=== PATIENT | male | born 1955 | race African-American/Black ===

== ENCOUNTER 2017-07-05 10:22 | Emergency (ER) | payer MEDICARE, MEDICAID ==
[~2017-07-05] VITALS: Ht 172.7 cm; Wt 55.0 kg
[~2017-07-05 10:22] MED LIST: NORCO; VALIUM
[2017-07-05 11:05] VITALS: BP 115/65
[2017-07-05 11:05] LABS: HEMATOCRIT. 38.2 % (42.0-52.0); HEMOGLOBIN. 12.7 g/dL (14.0-18.0); LYMPHOCYTES % 21.4 % (20.0-50.0); MEAN CORPUSCULAR HEMOGLOBIN 26.8 pg (28.0-32.0); MEAN PLATELET VOLUME 6.6 fl (7.4-10.4); MONOCYTES % 7.4 % (2.0-8.0); NEUTROPHILS % 69.2 % (40.0-76.0); PLATELET 524 x1000/uL (130-400); RED BLOOD CELL COUNT 4.72 mill/uL (4.7-6.1); RED CELL DISTRIBUTION WIDTH 13.1 % (11.6-14.6)
[2017-07-05 11:14] LABS: INR 1.2; PROTHROMBIN TIME 12.3 sec (9.4-11.6)
[2017-07-05 11:18] LABS: CHLORIDE 104 mEq/L (98-107)
[2017-07-05 11:27] LABS: CARBON DIOXIDE 31 mEq/L (21-32)
== END 2017-07-05 12:15 | disposition home or self-care (01) ==
LOC: ER 10:39
DX: R20.2 Paresthesia of skin (principal); J45.909 Unspecified asthma, uncomplicated; Z86.73 Personal history of transient ischemic attack (TIA), and cerebral infarction without residual deficits
CPT/HCPCS: 36415; 70450; 71045; 80053; 85025; 85610; 93005; 99285

== ENCOUNTER 2017-07-31 10:30 | Inpatient (IN) | payer MEDICARE, MEDICAID ==
[~2017-07-31] VITALS: Ht 175.3 cm; Wt 59.0 kg
[2017-07-31] MEDS ORDERED: ONDANSETRON HCL 4MG/2ML VIAL IV STA (10:56)
[2017-07-31] MEDS ORDERED: MORPHINE SULFATE 4 MG/ML CPJ (NOT FOR IM USE) IV STA (10:56)
[2017-07-31 11:13] LABS: EOSINOPHILS % 2.2 % (0.0-5.0); HEMATOCRIT. 35.9 % (42.0-52.0); HEMOGLOBIN. 11.8 g/dL (14.0-18.0); LYMPHOCYTES % 33.6 % (20.0-50.0); MEAN CORPUSCULAR HEMOGLOBIN 26.6 pg (28.0-32.0); MEAN CORPUSCULAR VOLUME 80.9 fL (80.0-94.0); MEAN PLATELET VOLUME 7.3 fl (7.4-10.4); MONOCYTES % 7.1 % (2.0-8.0); NEUTROPHILS % 56.1 % (40.0-76.0); PLATELET 226 x1000/uL (130-400); RED BLOOD CELL COUNT 4.44 mill/uL (4.7-6.1); RED CELL DISTRIBUTION WIDTH 13.9 % (11.6-14.6)
[2017-07-31 11:22] LABS: D-DIMER 0.36 mg/L FEU (<0.50); INR 1.1; PROTHROMBIN TIME 11.5 sec (9.4-11.6)
[2017-07-31 11:27] LABS: CHLORIDE 108 mEq/L (98-107); TROPONIN I 0.04 ng/mL (0.00-0.04)
[2017-07-31] MEDS ORDERED: IPRATROPIUM/ALBUTEROL 0.5-3(2.5)MG/3ML NEB HHN PRN (13:00)
[2017-07-31] MEDS ORDERED: HYDROCODONE/ACETAMINOPHEN 5/325MG TABLET PO PRN (13:00)
[2017-07-31] MEDS ORDERED: ONDANSETRON HCL 4MG/2ML VIAL IV PRN (13:00)
[2017-07-31] MEDS ORDERED: MORPHINE SULFATE 2 MG/ML CPJ (NOT FOR IM USE) IV PRN (13:00)
[2017-07-31 14:10] VITALS: BP 100/50
[2017-07-31 16:00] VITALS: BP 108/59
[2017-07-31] MEDS ORDERED: ASPI-986 PO (16:42)
[2017-07-31 16:50] VITALS: BP 100/50
[2017-07-31 17:06] LABS: CREATINE KINASE MB FRACTION < 0.5 ng/mL (0.5-3.6); TROPONIN I 0.04 ng/mL (0.00-0.04)
[2017-07-31] MEDS ORDERED: PNEUMOCOCCAL 23-VAL P-SAC VAC 0.5 ML IM ONE (18:00)
[2017-07-31] MEDS ORDERED: INFLUENZA VIRUS VACCINE 0.5ML SYR IM ONE (18:00)
[2017-07-31] MEDS: CLOPIDOGREL 75MG TABLET PO SCH (18:21)
[2017-07-31] MEDS: NICOTINE 14MG PATCH TD SCH (18:56)
[2017-07-31] MEDS ORDERED: REGADENOSON 0.4 MG/5 ML IV SCH (19:00)
[2017-07-31 20:00] VITALS: BP 112/47
[2017-07-31] MEDS ORDERED: ATORVASTATIN CALCIUM 10MG TABLET PO SCH (21:00)
[2017-08-01] VITALS: BP 117/62
[2017-08-01 04:00] VITALS: BP 120/65
[2017-08-01 06:32] LABS: BASOPHILS % 0.5 % (0.0-2.0); EOSINOPHILS % 3.2 % (0.0-5.0); HEMATOCRIT. 33.6 % (42.0-52.0); HEMOGLOBIN. 11.2 g/dL (14.0-18.0); LYMPHOCYTES % 40.7 % (20.0-50.0); MEAN CORPUSCULAR HEMOGLOBIN 27.1 pg (28.0-32.0); MEAN PLATELET VOLUME 7.8 fl (7.4-10.4); MONOCYTES % 7.6 % (2.0-8.0); PLATELET 203 x1000/uL (130-400); RED BLOOD CELL COUNT 4.15 mill/uL (4.7-6.1); RED CELL DISTRIBUTION WIDTH 14.2 % (11.6-14.6)
[2017-08-01 07:07] LABS: CHLORIDE 108 mEq/L (98-107); HDL CHOLESTEROL 45 mg/dL (40-59); LDL CHOLESTEROL 99 mg/dL (5-100)
[2017-08-01 07:50] VITALS: BP 110/71
[2017-08-01] MEDS ORDERED: ASPIRIN 81MG TABLET PO SCH (09:00)
[2017-08-01] MEDS ORDERED: REGADENOSON 0.4 MG/5 ML IV ONE (09:22)
[2017-08-01] MEDS ORDERED: NICO-681 TD (11:09)
[2017-08-01] MEDS ORDERED: CLOP75TA16 PO (11:09)
[2017-08-01] MEDS: CLOPIDOGREL 75MG TABLET PO SCH (11:32)
[2017-08-01] MEDS: NICOTINE 14MG PATCH TD SCH (11:35)
[2017-08-01 12:00] VITALS: BP 105/72
[2017-08-01] MEDS ORDERED: SODIUM CHLORIDE 0.9% 10ML VIAL ONE (14:07)
[2017-08-01 14:44] VITALS: BP 105/72
== END 2017-08-01 16:05 | disposition home or self-care (01) | DRG 206 ==
LOC: ER 10:30 → EDBEDREQ 12:16 → ENRESERV 13:02 → 8WST 14:43
PROVIDERS: ADMIT Internal Medicine; ATTEND Internal Medicine
DX: M94.0 Chondrocostal junction syndrome [Tietze] (principal); I24.9 Acute ischemic heart disease, unspecified; F17.210 Nicotine dependence, cigarettes, uncomplicated; D64.9 Anemia, unspecified; R35.1 Nocturia; R21 Rash and other nonspecific skin eruption; J45.909 Unspecified asthma, uncomplicated; Z79.82 Long term (current) use of aspirin; Z82.49 Family history of ischemic heart disease and other diseases of the circulatory system; Z86.73 Personal history of transient ischemic attack (TIA), and cerebral infarction without residual deficits; Z71.6 Tobacco abuse counseling
CPT/HCPCS: 36415; 71045; 78452; 80048; 80061; 82553; 83735; 83880; 84484; 85025; 85379; 85610; 85651; 85730; 93005; 93017; 93306; 97161; A4216; A9500; A9505; C1893; J2270; J2405; J2785

== ENCOUNTER 2017-08-16 10:45 | Emergency (ER) | payer MEDICARE, MEDICAID ==
[~2017-08-16] VITALS: Ht 180.3 cm; Wt 70.0 kg
[~2017-08-16 10:45] MED LIST changes: +ASPI-986 PO; +CLOP75TA16 PO; +NICO-681 TD; -NORCO; -VALIUM
[2017-08-16 11:38] LABS: BASOPHILS % 0.7 % (0.0-2.0); EOSINOPHILS % 2.4 % (0.0-5.0); HEMOGLOBIN. 11.9 g/dL (14.0-18.0); LYMPHOCYTES % 29.1 % (20.0-50.0); MEAN CORPUSCULAR HEMOGLOBIN 26.7 pg (28.0-32.0); MEAN CORPUSCULAR VOLUME 82.9 fL (80.0-94.0); MONOCYTES % 8.6 % (2.0-8.0); NEUTROPHILS % 59.2 % (40.0-76.0); PLATELET 167 x1000/uL (130-400); RED BLOOD CELL COUNT 4.46 mill/uL (4.7-6.1); RED CELL DISTRIBUTION WIDTH 14.9 % (11.6-14.6)
[2017-08-16 11:42] LABS: INR 1.2
[2017-08-16 11:46] LABS: CHLORIDE 109 mEq/L (98-107)
[2017-08-16 11:51] LABS: TROPONIN I 0.06 ng/mL (0.00-0.04)
[2017-08-16] MEDS ORDERED: FAMOTIDINE 20MG/2ML VIAL IV STA (12:24)
[2017-08-16] MEDS ORDERED: MAGNESIUM/ALUMINUM HYDROXIDE/SIMETHICONE 30ML UDC PO STA (12:24)
[2017-08-16 16:15] VITALS: BP 119/79
[2017-08-16] MEDS ORDERED: ASPIRIN 81MG TABLET PO ONE (16:30)
== END 2017-08-16 17:37 | disposition left against medical advice (07) ==
LOC: ER 11:06
DX: R07.89 Other chest pain (principal); D64.9 Anemia, unspecified; D72.819 Decreased white blood cell count, unspecified; R79.89 Other specified abnormal findings of blood chemistry; R74.8 Abnormal levels of other serum enzymes; R00.1 Bradycardia, unspecified; J45.909 Unspecified asthma, uncomplicated; E11.9 Type 2 diabetes mellitus without complications; I10 Essential (primary) hypertension; Z79.02 Long term (current) use of antithrombotics/antiplatelets; Z79.82 Long term (current) use of aspirin; Z86.73 Personal history of transient ischemic attack (TIA), and cerebral infarction without residual deficits
CPT/HCPCS: 36415; 71045; 80053; 83880; 84484; 85025; 85610; 93005; 96374; 99285; J3490

== ENCOUNTER 2017-10-30 12:21 | Emergency (ER) | payer MEDICARE, MEDICAID ==
[~2017-10-30] VITALS: Ht 162.6 cm; Wt 64.0 kg
[2017-10-30] MEDS ORDERED: MAGNESIUM/ALUMINUM HYDROXIDE/SIMETHICONE 30ML UDC PO STA (18:54)
[2017-10-30 18:57] VITALS: BP 126/75
[2017-10-30 19:39] LABS: EOSINOPHILS % 1.9 % (0.0-5.0); HEMATOCRIT. 36.2 % (42.0-52.0); HEMOGLOBIN. 12.1 g/dL (14.0-18.0); LYMPHOCYTES % 44.7 % (20.0-50.0); MEAN CORPUSCULAR HEMOGLOBIN 27.4 pg (28.0-32.0); MEAN CORPUSCULAR VOLUME 81.9 fL (80.0-94.0); MEAN PLATELET VOLUME 7.9 fl (7.4-10.4); MONOCYTES % 7.6 % (2.0-8.0); NEUTROPHILS % 44.8 % (40.0-76.0); PLATELET 158 x1000/uL (130-400); RED BLOOD CELL COUNT 4.42 mill/uL (4.7-6.1)
[2017-10-30 19:40] LABS: CHLORIDE 109 mEq/L (98-107)
[2017-10-30 19:42] LABS: INR 1.2; PROTHROMBIN TIME 12.2 sec (9.4-11.6)
== END 2017-10-30 21:10 | disposition left against medical advice (07) ==
LOC: ER 12:30
DX: R10.13 Epigastric pain (principal); I10 Essential (primary) hypertension; I69.328 Other speech and language deficits following cerebral infarction; J45.909 Unspecified asthma, uncomplicated; Z79.82 Long term (current) use of aspirin
CPT/HCPCS: 36415; 74176; 80053; 85025; 85610; 99285

== ENCOUNTER 2018-08-15 11:38 | Emergency (ER) | payer MEDICARE, MEDICAID ==
[~2018-08-15] VITALS: Ht 172.7 cm; Wt 56.5 kg
[2018-08-15 12:11] LABS: BASOPHILS % 0.4 % (0.0-2.0); EOSINOPHILS % 1.3 % (0.0-5.0); HEMATOCRIT. 37.4 % (42.0-52.0); HEMOGLOBIN. 12.3 g/dL (14.0-18.0); LYMPHOCYTES % 26.8 % (20.0-50.0); MEAN CORPUSCULAR HEMOGLOBIN 27.7 pg (28.0-32.0); MEAN PLATELET VOLUME 8.4 fl (7.4-10.4); MONOCYTES % 6.5 % (2.0-8.0); PLATELET 156 x1000/uL (130-400); RED BLOOD CELL COUNT 4.45 mill/uL (4.7-6.1)
[2018-08-15 12:19] LABS: CHLORIDE 109 mEq/L (98-107)
[2018-08-15 12:25] LABS: INR 1.1; PROTHROMBIN TIME 11.1 sec (9.1-11.1)
[2018-08-15 12:27] LABS: ETHANOL BLOOD < 10 mg/dL
[2018-08-15 12:29] LABS: LDL CHOLESTEROL 107 mg/dL (5-100)
[2018-08-15] MEDS ORDERED: POTASSIUM CHLORIDE 20MEQ TABLET SR PO ONE (12:30)
[2018-08-15] MEDS ORDERED: ASPIRIN 325MG EC TABLET PO ONE (12:30)
[2018-08-15] MEDS ORDERED: ACETAMINOPHEN 325MG TABLET PO PRN (15:15)
[2018-08-15] MEDS ORDERED: ONDANSETRON HCL 4MG/2ML INJ IV PRN (15:15)
[2018-08-15 15:29] VITALS: BP 128/71
[2018-08-15] MEDS ORDERED: ATORVASTATIN CALCIUM 40MG TABLET PO SCH (21:00)
[2018-08-15] MEDS ORDERED: AMLODIPINE 5MG TABLET PO SCH (21:00)
[2018-08-16] MEDS ORDERED: CLOPIDOGREL 75MG TABLET PO SCH (09:00)
== END 2018-08-15 16:02 | disposition left against medical advice (07) ==
LOC: ER 11:38 → CANBEDREQ 17:25
DX: I63.9 Cerebral infarction, unspecified (principal); I24.9 Acute ischemic heart disease, unspecified; E87.6 Hypokalemia; I11.9 Hypertensive heart disease without heart failure; J45.909 Unspecified asthma, uncomplicated; F17.210 Nicotine dependence, cigarettes, uncomplicated; Z86.73 Personal history of transient ischemic attack (TIA), and cerebral infarction without residual deficits; Z79.82 Long term (current) use of aspirin; Z71.6 Tobacco abuse counseling
CPT/HCPCS: 36415; 71045; 82962; 83721; 84443; 84484; 93005; 99284; 99406

== ENCOUNTER 2019-06-01 13:14 | Emergency (ER) | payer MEDICARE, MEDICAID ==
[~2019-06-01] VITALS: Ht 175.3 cm; Wt 73.0 kg
[~2019-06-01 13:14] MED LIST changes: -CLOP75TA16 PO; +CLOP75TA4 PO
[2019-06-01] MEDS ORDERED: ACETAMINOPHEN 325MG TABLET PO ONE (17:45)
[2019-06-01 17:53] VITALS: BP 151/99
== END 2019-06-01 17:56 | disposition home or self-care (01) ==
LOC: ER 13:58
DX: S09.8XXA Other specified injuries of head, initial encounter (principal); I69.351 Hemiplegia and hemiparesis following cerebral infarction affecting right dominant side; I69.328 Other speech and language deficits following cerebral infarction; I25.10 Atherosclerotic heart disease of native coronary artery without angina pectoris; J45.909 Unspecified asthma, uncomplicated; Z79.82 Long term (current) use of aspirin; W01.0XXA Fall on same level from slipping, tripping and stumbling without subsequent striking against object, initial encounter; Y93.89 Activity, other specified; Y92.013 Bedroom of single-family (private) house as the place of occurrence of the external cause
CPT/HCPCS: 99284

== ENCOUNTER 2019-09-10 20:42 | Inpatient (IN) | payer MEDICARE, MEDICAID ==
[~2019-09-10] VITALS: Ht 170.2 cm; Wt 70.1 kg
[2019-09-10 21:44] LABS: BASOPHILS % 0.6 % (0.0-2.0); EOSINOPHILS % 1.4 % (0.0-5.0); HEMATOCRIT. 37.1 % (42.0-52.0); HEMOGLOBIN. 12.4 g/dL (14.0-18.0); LYMPHOCYTES % 29.6 % (20.0-50.0); MEAN CORPUSCULAR HEMOGLOBIN 27.4 pg (28.0-32.0); MEAN CORPUSCULAR VOLUME 82.4 fL (80.0-94.0); MONOCYTES % 10.2 % (2.0-8.0); NEUTROPHILS % 58.2 % (40.0-76.0); PLATELET 159 x1000/uL (130-400); RED CELL DISTRIBUTION WIDTH 14.1 % (11.6-14.6)
[2019-09-10 21:46] LABS: CHLORIDE 114 mEq/L (98-107)
[2019-09-11] VITALS (7 sets, daily range): BP systolic 101–167; BP diastolic 61–98
[2019-09-11 00:14] LABS: CLARITY URINE CLEAR (CLEAR); COLOR URINE YELLOW (YELLOW); KETONES URINE NEGATIVE (NEGATIVE); LEUKOCYTE ESTERASE URINE NEGATIVE (NEGATIVE); NITRITE URINE NEGATIVE (NEGATIVE); OCCULT BLOOD URINE NEGATIVE (NEGATIVE); PROTEIN URINE NEGATIVE (NEGATIVE); SPECIFIC GRAVITY URINE 1.025 (1.005-1.030)
[2019-09-11] MEDS ORDERED: ASPIRIN 325MG EC TABLET PO ONE (01:45)
[2019-09-11] MEDS ORDERED: ACETAMINOPHEN 325MG TABLET PO PRN (07:30)
[2019-09-11] MEDS ORDERED: CLONIDINE 0.1MG TABLET PO PRN (07:30)
[2019-09-11] MEDS ORDERED: DIPHENHYDRAMINE 50MG/ML VIAL IV PRN (07:30)
[2019-09-11] MEDS ORDERED: ONDANSETRON HCL 4MG/2ML INJ IV PRN (07:30)
[2019-09-11 07:52] LABS: PHOSPHORUS 2.9 mg/dL (2.5-4.9)
[2019-09-11] MEDS: ASPIRIN 81MG EC TABLET PO SCH (11:58)
[2019-09-11] MEDS: ENOXAPARIN 40MG/0.4ML SYR SUBCUT SCH (11:58)
[2019-09-11] MEDS: AMLODIPINE 5MG TABLET PO SCH (21:00)
[2019-09-12] VITALS (11 sets, daily range): BP systolic 100–125; BP diastolic 58–86
[2019-09-12 06:02] LABS: CHLORIDE 111 mEq/L (98-107)
[2019-09-12 06:03] LABS: BASOPHILS % 0.5 % (0.0-2.0); EOSINOPHILS % 2.1 % (0.0-5.0); HEMATOCRIT. 38.7 % (42.0-52.0); HEMOGLOBIN. 13.2 g/dL (14.0-18.0); LYMPHOCYTES % 36.6 % (20.0-50.0); MEAN CORPUSCULAR VOLUME 82.1 fL (80.0-94.0); MEAN PLATELET VOLUME 8.2 fl (7.4-10.4); MONOCYTES % 9.8 % (2.0-8.0); PLATELET 167 x1000/uL (130-400); RED BLOOD CELL COUNT 4.72 mill/uL (4.7-6.1); RED CELL DISTRIBUTION WIDTH 13.8 % (11.6-14.6)
[2019-09-12 06:14] LABS: LDL CHOLESTEROL 139 mg/dL (5-100)
[2019-09-12 06:15] LABS: HDL CHOLESTEROL 62 mg/dL (40-59)
[2019-09-12] MEDS: ENOXAPARIN 40MG/0.4ML SYR SUBCUT SCH (09:00)
[2019-09-12] MEDS: ASPIRIN 81MG EC TABLET PO SCH (09:00)
[2019-09-12] MEDS: AMLODIPINE 5MG TABLET PO SCH ×2 (09:00→20:44)
[2019-09-12] MEDS ORDERED: ATORVASTATIN CALCIUM 20MG TABLET PO SCH (21:00)
[2019-09-13] VITALS (8 sets, daily range): BP systolic 98–157; BP diastolic 58–104
[2019-09-13 04:50] LABS: CHLORIDE 109 mEq/L (98-107)
[2019-09-13 06:12] LABS: BASOPHILS % 0.5 % (0.0-2.0); EOSINOPHILS % 1.7 % (0.0-5.0); HEMATOCRIT. 41.1 % (42.0-52.0); HEMOGLOBIN. 13.9 g/dL (14.0-18.0); MEAN CORPUSCULAR VOLUME 82.7 fL (80.0-94.0); MEAN PLATELET VOLUME 8.2 fl (7.4-10.4); MONOCYTES % 10.3 % (2.0-8.0); NEUTROPHILS % 49.5 % (40.0-76.0); PLATELET 169 x1000/uL (130-400); RED BLOOD CELL COUNT 4.97 mill/uL (4.7-6.1); RED CELL DISTRIBUTION WIDTH 13.8 % (11.6-14.6)
[2019-09-13] MEDS: AMLODIPINE 5MG TABLET PO SCH (09:46)
[2019-09-13] MEDS: ASPIRIN 81MG EC TABLET PO SCH (09:46)
[2019-09-13] MEDS: ENOXAPARIN 40MG/0.4ML SYR SUBCUT SCH (09:47)
== END 2019-09-13 22:25 | DRG 312 ==
LOC: ER 20:42 → 6WST 09-11 02:07 → ENRESERV 09-11 07:45
PROVIDERS: ADMIT Internal Medicine; ATTEND Internal Medicine
DX: R55 Syncope and collapse (principal); I69.320 Aphasia following cerebral infarction; E78.5 Hyperlipidemia, unspecified; I10 Essential (primary) hypertension; D64.9 Anemia, unspecified; R47.1 Dysarthria and anarthria; Z87.891 Personal history of nicotine dependence; Z79.02 Long term (current) use of antithrombotics/antiplatelets; J45.909 Unspecified asthma, uncomplicated
CPT/HCPCS: 36415; 80048; 80053; 80061; 81003; 83735; 84100; 84443; 84484; 85025; 93005; 93306; 93880; 93970; 97116; 97162; 97166; 99285; J1650

== ENCOUNTER 2021-03-23 22:26 | Inpatient (IN) | payer MEDICARE, MEDICAID ==
[~2021-03-23] VITALS: Ht 182.9 cm; Wt 75.5 kg
[~2021-03-23 22:26] MED LIST changes: +CLOP-31 PO; -CLOP75TA4 PO
[2021-03-23 23:38] LABS: HEMATOCRIT. 43.1 % (42.0-52.0); HEMOGLOBIN. 14.6 g/dL (14.0-18.0); MEAN CORPUSCULAR HEMOGLOBIN 27.2 pg (28.0-32.0); MEAN CORPUSCULAR VOLUME 80.6 fL (80.0-94.0); MEAN PLATELET VOLUME 8.1 fl (7.4-10.4); PLATELET 141 x1000/uL (130-400); RED BLOOD CELL COUNT 5.35 mill/uL (4.7-6.1); RED CELL DISTRIBUTION WIDTH 13.9 % (11.6-14.6)
[2021-03-23 23:44] LABS: CHLORIDE 105 mEq/L (98-107)
[2021-03-23 23:49] LABS: ETHANOL BLOOD < 10 mg/dL
[2021-03-23 23:51] LABS: PROTHROMBIN TIME 11.2 sec (9.6-11.0)
[2021-03-23 23:53] LABS: CREATINE KINASE 288 IU/L (39-308)
[2021-03-24] MEDS ORDERED: AZITHROMYCIN 500MG/250ML 250 ML IV SCH (01:00)
[2021-03-24] MEDS ORDERED: DEXAMETHASONE 10 MG/ML VIAL IV SCH (01:15)
[2021-03-24] MEDS ORDERED: CEFTRIAXONE 1 G PREMIX 50 ML IV SCH ×2 (01:15→09:15)
[2021-03-24 01:47] LABS: PLATELET ESTIMATE NORMAL
[2021-03-24] MEDS ORDERED: ASPIRIN 81MG TABLET PO ONE (02:45)
[2021-03-24] MEDS ORDERED: ENOXAPARIN 60MG/0.6ML SYR SUBCUT ONE (02:45)
[2021-03-24 08:00] VITALS: BP_SYST 100; BP_SYST 150; BP_DIAS 76
[2021-03-24] MEDS ORDERED: LEVO50TA8 PO (09:10)
[2021-03-24] MEDS ORDERED: LOSA100T32 PO (09:10)
[2021-03-24] MEDS ORDERED: LABE200T9 PO (09:10)
[2021-03-24] MEDS ORDERED: ACETAMINOPHEN 325MG TABLET PO PRN (09:15)
[2021-03-24] MEDS ORDERED: ONDANSETRON HCL 4MG/2ML INJ IV PRN (09:15)
[2021-03-24] MEDS: ENOXAPARIN 40MG/0.4ML SYR SUBCUT SCH (10:57)
[2021-03-24] MEDS: SODIUM CHLORIDE 0.9% 1,000 ML IV SCH ×2 (10:57→20:18)
[2021-03-24 12:00] VITALS: BP 110/81
[2021-03-24 15:24] VITALS: BP 107/78
[2021-03-24 16:00] VITALS: BP 109/80
[2021-03-24 20:00] VITALS: BP 96/72
[2021-03-24] MEDS: CEFTRIAXONE 1,000 MG in DEXTROSE 5% WATER 50 ML IV SCH (20:16)
[2021-03-24] MEDS: AZITHROMYCIN 500MG in DEXTROSE 5% WATER 250ML IV SCH (20:16)
[2021-03-25] VITALS: BP 105/70
[2021-03-25 04:00] VITALS: BP 108/78
[2021-03-25 06:29] LABS: CHLORIDE 109 mEq/L (98-107)
[2021-03-25 06:38] LABS: LDL CHOLESTEROL 89 mg/dL (5-100)
[2021-03-25 06:40] LABS: HDL CHOLESTEROL 42 mg/dL (40-59)
[2021-03-25 06:48] LABS: BASOPHILS % 0.2 % (0.0-2.0); HEMATOCRIT. 40.4 % (42.0-52.0); HEMOGLOBIN. 13.4 g/dL (14.0-18.0); LYMPHOCYTES % 11.3 % (20.0-50.0); MEAN CORPUSCULAR HEMOGLOBIN 26.7 pg (28.0-32.0); MEAN CORPUSCULAR VOLUME 80.8 fL (80.0-94.0); MEAN PLATELET VOLUME 8.8 fl (7.4-10.4); MONOCYTES % 12.5 % (2.0-8.0); PLATELET 156 x1000/uL (130-400); RED CELL DISTRIBUTION WIDTH 13.7 % (11.6-14.6)
[2021-03-25 07:47] VITALS: BP 130/62
[2021-03-25] MEDS: DEXAMETHASONE 10 MG/ML VIAL IV SCH (08:51)
[2021-03-25] MEDS: ENOXAPARIN 40MG/0.4ML SYR SUBCUT SCH (08:53)
[2021-03-25 12:00] VITALS: BP 124/52
[2021-03-25] MEDS: SODIUM CHLORIDE 0.9% 1,000 ML IV SCH (12:11)
[2021-03-25 16:21] VITALS: BP 102/62
[2021-03-25 20:00] VITALS: BP 121/88
[2021-03-25] MEDS: AZITHROMYCIN 500MG in DEXTROSE 5% WATER 250ML IV SCH (20:04)
[2021-03-25] MEDS: CEFTRIAXONE 1,000 MG in DEXTROSE 5% WATER 50 ML IV SCH (20:04)
[2021-03-26] VITALS (7 sets, daily range): BP systolic 127–167; BP diastolic 57–89
[2021-03-26] MEDS: ENOXAPARIN 40MG/0.4ML SYR SUBCUT SCH (09:09)
[2021-03-26] MEDS: SODIUM CHLORIDE 0.9% 1,000 ML IV SCH ×2 (09:09→17:44)
[2021-03-26] MEDS: DEXAMETHASONE 10 MG/ML VIAL IV SCH (09:09)
[2021-03-26] MEDS: AZITHROMYCIN 500 MG TABLET PO SCH (21:09)
[2021-03-26] MEDS: CEFTRIAXONE 1,000 MG in DEXTROSE 5% WATER 50 ML IV SCH (21:09)
[2021-03-26] MEDS: CLONIDINE 0.1MG TABLET PO PRN (21:10)
[2021-03-27] VITALS: BP 140/69
[2021-03-27] MEDS: SODIUM CHLORIDE 0.9% 1,000 ML IV SCH ×2 (03:39→15:02)
[2021-03-27 04:00] VITALS: BP 145/96
[2021-03-27 08:00] VITALS: BP 143/87
[2021-03-27] MEDS: ENOXAPARIN 40MG/0.4ML SYR SUBCUT SCH (08:20)
[2021-03-27] MEDS: DEXAMETHASONE 10 MG/ML VIAL IV SCH (08:20)
[2021-03-27 12:00] VITALS: BP 147/92
[2021-03-27] MEDS: CLONIDINE 0.1MG TABLET PO PRN (15:04)
[2021-03-27 16:00] VITALS: BP 140/76
[2021-03-27 20:00] VITALS: BP 157/94
[2021-03-27] MEDS: CEFTRIAXONE 1,000 MG in DEXTROSE 5% WATER 50 ML IV SCH (21:19)
[2021-03-27] MEDS: AZITHROMYCIN 500 MG TABLET PO SCH (21:19)
[2021-03-28] VITALS: BP 155/89
[2021-03-28 04:00] VITALS: BP 154/99
[2021-03-28] MEDS: SODIUM CHLORIDE 0.9% 1,000 ML IV SCH ×2 (04:12→19:55)
[2021-03-28 08:00] VITALS: BP 156/104
[2021-03-28] MEDS: DEXAMETHASONE 10 MG/ML VIAL IV SCH (08:07)
[2021-03-28] MEDS: ENOXAPARIN 40MG/0.4ML SYR SUBCUT SCH (08:07)
[2021-03-28 12:00] VITALS: BP_SYST 130; BP_SYST 163; BP_DIAS 115; BP_DIAS 62
[2021-03-28 16:00] VITALS: BP 165/88
[2021-03-28] MEDS: CLONIDINE 0.1MG TABLET PO PRN ×2 (17:06→21:58)
[2021-03-28 20:00] VITALS: BP 175/95
[2021-03-28] MEDS: AZITHROMYCIN 500 MG TABLET PO SCH (21:52)
[2021-03-28] MEDS: CEFTRIAXONE 1,000 MG in DEXTROSE 5% WATER 50 ML IV SCH (21:52)
[2021-03-29] VITALS (7 sets, daily range): BP systolic 133–178; BP diastolic 85–103
[2021-03-29 07:09] LABS: HEMATOCRIT. 38.6 % (42.0-52.0); HEMOGLOBIN. 12.9 g/dL (14.0-18.0); MEAN CORPUSCULAR HEMOGLOBIN 26.9 pg (28.0-32.0); MEAN CORPUSCULAR VOLUME 80.6 fL (80.0-94.0); MEAN PLATELET VOLUME 7.9 fl (7.4-10.4); PLATELET 275 x1000/uL (130-400); RED BLOOD CELL COUNT 4.79 mill/uL (4.7-6.1); RED CELL DISTRIBUTION WIDTH 13.9 % (11.6-14.6)
[2021-03-29 07:29] LABS: CHLORIDE 111 mEq/L (98-107)
[2021-03-29] MEDS: DEXAMETHASONE 10 MG/ML VIAL IV SCH (08:26)
[2021-03-29] MEDS: ENOXAPARIN 40MG/0.4ML SYR SUBCUT SCH (08:27)
[2021-03-29] MEDS ORDERED: SODIUM CHLORIDE 0.9% 1,000 ML IV SCH (11:15)
[2021-03-29] MEDS: SODIUM CHLORIDE 0.9% 1,000 ML IV SCH ×2 (11:26→22:17)
[2021-03-29 19:50] LABS: PLATELET ESTIMATE NORMAL
[2021-03-29] MEDS: DIPHENHYDRAMINE 50MG/ML VIAL IV PRN (22:16)
[2021-03-29] MEDS: CLONIDINE 0.1MG TABLET PO PRN (22:16)
[2021-03-30] VITALS: BP 175/99
[2021-03-30 04:00] VITALS: BP 150/99
[2021-03-30] MEDS ORDERED: LORAZEPAM 0.5MG TABLET PO PRN (06:15)
[2021-03-30 08:00] VITALS: BP 148/109
[2021-03-30] MEDS: ENOXAPARIN 40MG/0.4ML SYR SUBCUT SCH (08:17)
[2021-03-30] MEDS: AMLODIPINE 10MG TABLET PO SCH (08:17)
[2021-03-30] MEDS: DEXAMETHASONE 10 MG/ML VIAL IV SCH (08:17)
[2021-03-30] MEDS: SODIUM CHLORIDE 0.9% 1,000 ML IV SCH (11:47)
[2021-03-30 12:00] VITALS: BP 140/110
[2021-03-30 16:00] VITALS: BP 152/67
[2021-03-30 20:02] VITALS: BP 175/100
[2021-03-31] VITALS: BP 146/98
[2021-03-31] MEDS: SODIUM CHLORIDE 0.9% 1,000 ML IV SCH ×2 (00:18→15:06)
[2021-03-31 04:00] VITALS: BP 144/98
[2021-03-31 07:17] LABS: HEMATOCRIT. 40.7 % (42.0-52.0); HEMOGLOBIN. 13.5 g/dL (14.0-18.0); MEAN CORPUSCULAR HEMOGLOBIN 26.8 pg (28.0-32.0); MEAN CORPUSCULAR VOLUME 80.7 fL (80.0-94.0); MEAN PLATELET VOLUME 8.1 fl (7.4-10.4); PLATELET 316 x1000/uL (130-400); RED BLOOD CELL COUNT 5.04 mill/uL (4.7-6.1); RED CELL DISTRIBUTION WIDTH 13.5 % (11.6-14.6)
[2021-03-31 07:23] LABS: CHLORIDE 109 mEq/L (98-107)
[2021-03-31 08:00] VITALS: BP 133/98
[2021-03-31] MEDS: AMLODIPINE 10MG TABLET PO SCH (08:36)
[2021-03-31] MEDS: ENOXAPARIN 40MG/0.4ML SYR SUBCUT SCH (08:36)
[2021-03-31] MEDS: DEXAMETHASONE 10 MG/ML VIAL IV SCH (08:36)
[2021-03-31 12:00] VITALS: BP 152/92
[2021-03-31 16:00] VITALS: BP 148/97
[2021-03-31 19:17] LABS: PLATELET ESTIMATE NORMAL
[2021-03-31 19:26] VITALS: BP 158/102
[2021-04-01] VITALS: BP 162/97
[2021-04-01] MEDS: CLONIDINE 0.1MG TABLET PO PRN (00:41)
[2021-04-01] MEDS: SODIUM CHLORIDE 0.9% 1,000 ML IV SCH ×2 (03:55→17:37)
[2021-04-01 04:00] VITALS: BP 158/98
[2021-04-01 08:00] VITALS: BP 140/96
[2021-04-01 08:09] LABS: HEMATOCRIT. 42.4 % (42.0-52.0); HEMOGLOBIN. 14.1 g/dL (14.0-18.0); MEAN CORPUSCULAR HEMOGLOBIN 26.7 pg (28.0-32.0); MEAN CORPUSCULAR VOLUME 80.5 fL (80.0-94.0); MEAN PLATELET VOLUME 7.8 fl (7.4-10.4); PLATELET 300 x1000/uL (130-400); RED BLOOD CELL COUNT 5.27 mill/uL (4.7-6.1); RED CELL DISTRIBUTION WIDTH 13.4 % (11.6-14.6)
[2021-04-01 08:12] LABS: CHLORIDE 108 mEq/L (98-107)
[2021-04-01] MEDS: AMLODIPINE 10MG TABLET PO SCH (08:37)
[2021-04-01] MEDS: DIPHENHYDRAMINE 50MG/ML VIAL IV PRN (08:37)
[2021-04-01] MEDS: DEXAMETHASONE 10 MG/ML VIAL IV SCH (08:38)
[2021-04-01] MEDS: ENOXAPARIN 40MG/0.4ML SYR SUBCUT SCH (08:38)
[2021-04-01 12:00] VITALS: BP 160/98
[2021-04-01 16:00] VITALS: BP 137/90
[2021-04-01 18:03] LABS: PLATELET ESTIMATE NORMAL
[2021-04-01 19:21] VITALS: BP 129/88
[2021-04-02] VITALS (7 sets, daily range): BP systolic 122–152; BP diastolic 75–93
[2021-04-02] MEDS: SODIUM CHLORIDE 0.9% 1,000 ML IV SCH ×2 (05:26→20:32)
[2021-04-02] MEDS: DEXAMETHASONE 10 MG/ML VIAL IV SCH (08:20)
[2021-04-02] MEDS: ENOXAPARIN 40MG/0.4ML SYR SUBCUT SCH (08:20)
[2021-04-02] MEDS: AMLODIPINE 10MG TABLET PO SCH (08:21)
[2021-04-03] VITALS: BP 149/93
[2021-04-03 04:00] VITALS: BP 151/92
[2021-04-03 07:28] LABS: HEMATOCRIT. 42.3 % (42.0-52.0); HEMOGLOBIN. 14.1 g/dL (14.0-18.0); MEAN CORPUSCULAR HEMOGLOBIN 26.9 pg (28.0-32.0); MEAN CORPUSCULAR VOLUME 80.6 fL (80.0-94.0); MEAN PLATELET VOLUME 7.9 fl (7.4-10.4); PLATELET 299 x1000/uL (130-400); RED BLOOD CELL COUNT 5.25 mill/uL (4.7-6.1); RED CELL DISTRIBUTION WIDTH 13.3 % (11.6-14.6)
[2021-04-03 07:33] LABS: CHLORIDE 109 mEq/L (98-107)
[2021-04-03 08:00] VITALS: BP 169/82
[2021-04-03] MEDS: DIPHENHYDRAMINE 50MG/ML VIAL IV PRN (08:02)
[2021-04-03] MEDS: AMLODIPINE 10MG TABLET PO SCH (08:02)
[2021-04-03] MEDS: DEXAMETHASONE 10 MG/ML VIAL IV SCH (08:02)
[2021-04-03] MEDS: ENOXAPARIN 40MG/0.4ML SYR SUBCUT SCH (08:02)
[2021-04-03] MEDS: CLONIDINE 0.1MG TABLET PO PRN (08:59)
[2021-04-03] MEDS: SODIUM CHLORIDE 0.9% 1,000 ML IV SCH ×2 (09:00→22:35)
[2021-04-03 12:00] VITALS: BP 118/80
[2021-04-03 16:00] VITALS: BP 133/82
[2021-04-03 17:55] LABS: BG BASE EXCESS 2.2 mmol/L (-2.0-2.0); BG CARBOXYHEMOGLOBIN 0.2 % (0.5-1.5); BG DEOXYHEMOGLOBIN 5.5 % (0.0-5.0); BG FRACTION INSPIRED OXYGEN 100; BG HCO3 ACT 25.1 mmol/L (22.0-26.0); BG METHEMOGLOBIN 0.3 % (0.0-1.5); BG OXYGEN SATURATION 94.5 % (92.0-98.5); BG PCO2 33.5 mmHg (35.0-45.0); BG PH 7.492 (7.350-7.450); BG PO2 69.1 mmHg (75.0-100.0); BG SAMPLE SITE LEFT RADIAL; BG TOTAL HEMOGLOBIN 13.3 g/dL (12.0-18.0); BG VENT MODE MASK - NRB
[2021-04-03 18:12] LABS: PLATELET ESTIMATE NORMAL
[2021-04-03 20:00] VITALS: BP 145/81
[2021-04-04] VITALS (14 sets, daily range): BP systolic 113–159; BP diastolic 70–93
[2021-04-04] MEDS: CLONIDINE 0.1MG TABLET PO PRN ×3 (00:40→19:15)
[2021-04-04] MEDS: DIPHENHYDRAMINE 50MG/ML VIAL IV PRN ×2 (08:56→17:10)
[2021-04-04] MEDS: AMLODIPINE 10MG TABLET PO SCH (08:57)
[2021-04-04] MEDS: DEXAMETHASONE 10 MG/ML VIAL IV SCH (08:57)
[2021-04-04] MEDS: ENOXAPARIN 40MG/0.4ML SYR SUBCUT SCH (08:57)
[2021-04-04] MEDS ORDERED: LORAZEPAM 0.5MG TABLET PO PRN (17:45)
[2021-04-04 18:56] LABS: BG BASE EXCESS 2.5 mmol/L (-2.0-2.0); BG CARBOXYHEMOGLOBIN 0.3 % (0.5-1.5); BG DEOXYHEMOGLOBIN 26.4 % (0.0-5.0); BG FRACTION INSPIRED OXYGEN 40; BG HCO3 ACT 25.4 mmol/L (22.0-26.0); BG METHEMOGLOBIN 0.2 % (0.0-1.5); BG OXYGEN SATURATION 73.5 % (92.0-98.5); BG OXYHEMOGLOBIN 73.1 % (94.0-97.0); BG PCO2 34.2 mmHg (35.0-45.0); BG PH 7.488 (7.350-7.450); BG SAMPLE SITE RIGHT RADIAL; BG TOTAL HEMOGLOBIN 15.1 g/dL (12.0-18.0); BG VENT MODE VAPOTHERM
[2021-04-04 19:23] LABS: BG BASE EXCESS 4.9 mmol/L (-2.0-2.0); BG CARBOXYHEMOGLOBIN 0.4 % (0.5-1.5); BG DEOXYHEMOGLOBIN 20.9 % (0.0-5.0); BG FRACTION INSPIRED OXYGEN 100; BG HCO3 ACT 28.9 mmol/L (22.0-26.0); BG METHEMOGLOBIN 0.3 % (0.0-1.5); BG OXYHEMOGLOBIN 78.4 % (94.0-97.0); BG PCO2 40.4 mmHg (35.0-45.0); BG PH 7.472 (7.350-7.450); BG PO2 41.8 mmHg (75.0-100.0); BG TOTAL HEMOGLOBIN 15.3 g/dL (12.0-18.0); BG VENT MODE HIGH FLOW
[2021-04-04] MEDS ORDERED: FENTANYL CITRATE/PF 50MCG/ML 2ML VIAL IV ONE (20:00)
[2021-04-04] MEDS ORDERED: FENTANYL CITRATE/PF 500 MCG in SODIUM CHLORIDE 0.9% 40 ML IV PRN ×2 (20:00→20:30)
[2021-04-04] MEDS ORDERED: NOREPINEPHRINE 8MG/250ML PMX 250 ML IV PRN ×2 (20:00→20:30)
[2021-04-04] MEDS ORDERED: PROPOFOL 10MG/ML 100ML 100 ML IV PRN (20:00)
[2021-04-04] MEDS ORDERED: FENTANYL CITRATE/PF 50MCG/ML 2ML VIAL ONE (20:11)
[2021-04-04] MEDS ORDERED: FENTANYL CITRATE/PF 50MCG/ML 2ML VIAL IV NR (20:30)
[2021-04-04] MEDS ORDERED: NOREPINEPHRINE 8 MG in DEXTROSE 5% WATER 250 ML IV PRN (20:45)
[2021-04-04 21:12] LABS: BG BASE EXCESS 2.7 mmol/L (-2.0-2.0); BG CARBOXYHEMOGLOBIN 0.4 % (0.5-1.5); BG DEOXYHEMOGLOBIN 8.2 % (0.0-5.0); BG FRACTION INSPIRED OXYGEN 100; BG METHEMOGLOBIN 0.3 % (0.0-1.5); BG OXYGEN SATURATION 91.7 % (92.0-98.5); BG OXYHEMOGLOBIN 91.1 % (94.0-97.0); BG PCO2 31.7 mmHg (35.0-45.0); BG PH 7.514 (7.350-7.450); BG PO2 57.8 mmHg (75.0-100.0); BG SAMPLE SITE RIGHT RADIAL; BG TOTAL HEMOGLOBIN 14.2 g/dL (12.0-18.0); BG TOTAL RESPIRATORY RATE 20 b/min; BG VENT MODE VENT - AC
[2021-04-04] MEDS: FENTANYL CITRATE 2,500 MCG in SODIUM CHLORIDE 0.9% 200 ML IV PRN (22:08)
[2021-04-04] MEDS: SODIUM CHLORIDE 0.9% 1,000 ML IV SCH (23:06)
[2021-04-05] VITALS (43 sets, daily range): BP systolic 94–188; BP diastolic 17–97
[2021-04-05] MEDS: SODIUM CHLORIDE 0.9% 1,000 ML IV SCH ×2 (01:15→16:15)
[2021-04-05] MEDS: PROPOFOL 10MG/ML 100ML 100 ML IV PRN (04:09)
[2021-04-05] MEDS ORDERED: ETOMIDATE 2MG/ML 10ML VIAL IV ONE (08:30)
[2021-04-05] MEDS ORDERED: SUCCINYLCHOLINE CHLORIDE 200MG/10ML IV ONE (08:30)
[2021-04-05] MEDS: FENTANYL CITRATE 2,500 MCG in SODIUM CHLORIDE 0.9% 200 ML IV PRN ×2 (08:32→23:42)
[2021-04-05 09:20] LABS: BG BASE EXCESS 3.9 mmol/L (-2.0-2.0); BG CARBOXYHEMOGLOBIN 0.3 % (0.5-1.5); BG DEOXYHEMOGLOBIN 5.7 % (0.0-5.0); BG FRACTION INSPIRED OXYGEN 100; BG HCO3 ACT 28.8 mmol/L (22.0-26.0); BG METHEMOGLOBIN 0.1 % (0.0-1.5); BG OXYGEN SATURATION 94.3 % (92.0-98.5); BG OXYHEMOGLOBIN 93.9 % (94.0-97.0); BG PCO2 44.6 mmHg (35.0-45.0); BG PH 7.428 (7.350-7.450); BG PO2 73.4 mmHg (75.0-100.0); BG SAMPLE SITE RIGHT RADIAL; BG VENT MODE VENT - AC
[2021-04-05] MEDS: AMLODIPINE 10MG TABLET PO SCH (09:37)
[2021-04-05] MEDS: ENOXAPARIN 40MG/0.4ML SYR SUBCUT SCH (09:37)
[2021-04-05] MEDS: DEXAMETHASONE 10 MG/ML VIAL IV SCH (09:37)
[2021-04-05] MEDS: PANTOPRAZOLE SODIUM 40 MG/VIAL IV SCH (10:29)
[2021-04-05] MEDS ORDERED: PROPOFOL 10MG/ML 100ML 100 ML IV PRN (16:00)
[2021-04-05] MEDS: IPRATROPIUM/ALBUTEROL 0.5-3(2.5)MG/3ML NEB HHN SCH (19:57)
[2021-04-06] VITALS (72 sets, daily range): BP systolic 88–178; BP diastolic 45–97
[2021-04-06] MEDS: IPRATROPIUM/ALBUTEROL 0.5-3(2.5)MG/3ML NEB HHN SCH ×4 (00:21→20:35)
[2021-04-06] MEDS: PROPOFOL 10MG/ML 100ML 100 ML IV PRN ×3 (01:08→17:43)
[2021-04-06] MEDS: SODIUM CHLORIDE 0.9% 1,000 ML IV SCH ×2 (01:47→16:54)
[2021-04-06 05:51] LABS: HEMATOCRIT. 34.7 % (42.0-52.0); HEMOGLOBIN. 11.6 g/dL (14.0-18.0); MEAN CORPUSCULAR HEMOGLOBIN 27.3 pg (28.0-32.0); MEAN CORPUSCULAR VOLUME 81.4 fL (80.0-94.0); MEAN PLATELET VOLUME 8.2 fl (7.4-10.4); PLATELET 217 x1000/uL (130-400); RED BLOOD CELL COUNT 4.27 mill/uL (4.7-6.1); RED CELL DISTRIBUTION WIDTH 13.3 % (11.6-14.6)
[2021-04-06 06:00] LABS: CHLORIDE 106 mEq/L (98-107)
[2021-04-06 08:29] LABS: BG BASE EXCESS 2.7 mmol/L (-2.0-2.0); BG CARBOXYHEMOGLOBIN 0.3 % (0.5-1.5); BG DEOXYHEMOGLOBIN 18.5 % (0.0-5.0); BG HCO3 ACT 28.1 mmol/L (22.0-26.0); BG METHEMOGLOBIN 0.2 % (0.0-1.5); BG OXYGEN SATURATION 81.4 % (92.0-98.5); BG PCO2 45.9 mmHg (35.0-45.0); BG PH 7.404 (7.350-7.450); BG SAMPLE SITE RIGHT RADIAL; BG TOTAL HEMOGLOBIN 13.2 g/dL (12.0-18.0); BG VENT MODE VENT - AC
[2021-04-06] MEDS: ENOXAPARIN 40MG/0.4ML SYR SUBCUT SCH (09:13)
[2021-04-06] MEDS: DEXAMETHASONE 10 MG/ML VIAL IV SCH (09:13)
[2021-04-06] MEDS: AMLODIPINE 10MG TABLET PO SCH (09:13)
[2021-04-06] MEDS: PANTOPRAZOLE SODIUM 40 MG/VIAL IV SCH (09:13)
[2021-04-06] MEDS ORDERED: BISACODYL 10MG SUPP PR NR (10:30)
[2021-04-06] MEDS ORDERED: BISACODYL 10MG SUPP PR PRN (10:30)
[2021-04-06 10:40] LABS: PLATELET ESTIMATE NORMAL
[2021-04-07] VITALS (99 sets, daily range): BP systolic 93–156; BP diastolic 50–123
[2021-04-07] MEDS: FENTANYL CITRATE 2,500 MCG in SODIUM CHLORIDE 0.9% 200 ML IV PRN (00:53)
[2021-04-07] MEDS: IPRATROPIUM/ALBUTEROL 0.5-3(2.5)MG/3ML NEB HHN SCH ×4 (01:48→20:40)
[2021-04-07] MEDS: PROPOFOL 10MG/ML 100ML 100 ML IV PRN ×2 (04:42→15:45)
[2021-04-07 05:40] LABS: CHLORIDE 106 mEq/L (98-107)
[2021-04-07] MEDS: SODIUM CHLORIDE 0.9% 1,000 ML IV SCH ×2 (06:44→19:55)
[2021-04-07] MEDS: AMLODIPINE 10MG TABLET PO SCH (08:47)
[2021-04-07] MEDS: PANTOPRAZOLE SODIUM 40 MG/VIAL IV SCH (08:47)
[2021-04-07] MEDS: DEXAMETHASONE 10 MG/ML VIAL IV SCH (08:47)
[2021-04-07] MEDS: ENOXAPARIN 40MG/0.4ML SYR SUBCUT SCH (08:48)
[2021-04-07 10:22] LABS: BG BASE EXCESS 4.5 mmol/L (-2.0-2.0); BG CARBOXYHEMOGLOBIN 0.3 % (0.5-1.5); BG DEOXYHEMOGLOBIN 9.3 % (0.0-5.0); BG FRACTION INSPIRED OXYGEN 95; BG HCO3 ACT 29.7 mmol/L (22.0-26.0); BG METHEMOGLOBIN 0.1 % (0.0-1.5); BG OXYGEN SATURATION 90.7 % (92.0-98.5); BG OXYHEMOGLOBIN 90.3 % (94.0-97.0); BG PCO2 46.7 mmHg (35.0-45.0); BG PH 7.421 (7.350-7.450); BG PO2 59.1 mmHg (75.0-100.0); BG SAMPLE SITE RIGHT RADIAL; BG TOTAL HEMOGLOBIN 12.2 g/dL (12.0-18.0); BG VENT MODE VENT - AC
[2021-04-08] VITALS (74 sets, daily range): BP systolic 86–167; BP diastolic 52–119
[2021-04-08] MEDS: PROPOFOL 10MG/ML 100ML 100 ML IV PRN (00:12)
[2021-04-08] MEDS: FENTANYL CITRATE 2,500 MCG in SODIUM CHLORIDE 0.9% 200 ML IV PRN ×2 (00:16→16:00)
[2021-04-08] MEDS: IPRATROPIUM/ALBUTEROL 0.5-3(2.5)MG/3ML NEB HHN SCH ×4 (00:18→20:48)
[2021-04-08 05:36] LABS: HEMATOCRIT. 39.3 % (42.0-52.0); HEMOGLOBIN. 12.9 g/dL (14.0-18.0); MEAN CORPUSCULAR HEMOGLOBIN 26.8 pg (28.0-32.0); MEAN CORPUSCULAR VOLUME 81.9 fL (80.0-94.0); MEAN PLATELET VOLUME 8.5 fl (7.4-10.4); PLATELET 182 x1000/uL (130-400); RED CELL DISTRIBUTION WIDTH 13.8 % (11.6-14.6)
[2021-04-08 05:43] LABS: CHLORIDE 99 mEq/L (98-107)
[2021-04-08 08:01] LABS: PLATELET ESTIMATE NORMAL
[2021-04-08] MEDS: ENOXAPARIN 40MG/0.4ML SYR SUBCUT SCH (08:35)
[2021-04-08] MEDS: PANTOPRAZOLE SODIUM 40 MG/VIAL IV SCH (08:35)
[2021-04-08] MEDS: SODIUM CHLORIDE 0.9% 1,000 ML IV SCH ×2 (08:35→22:35)
[2021-04-08] MEDS: DEXAMETHASONE 10 MG/ML VIAL IV SCH (08:35)
[2021-04-08] MEDS: AMLODIPINE 10MG TABLET PO SCH (08:36)
[2021-04-08 08:44] LABS: BG CARBOXYHEMOGLOBIN 0.5 % (0.5-1.5); BG DEOXYHEMOGLOBIN 14.8 % (0.0-5.0); BG HCO3 ACT 29.6 mmol/L (22.0-26.0); BG METHEMOGLOBIN 0.3 % (0.0-1.5); BG OXYGEN SATURATION 85.1 % (92.0-98.5); BG OXYHEMOGLOBIN 84.4 % (94.0-97.0); BG PCO2 43.1 mmHg (35.0-45.0); BG PH 7.454 (7.350-7.450); BG SAMPLE SITE RIGHT RADIAL; BG TOTAL HEMOGLOBIN 13.4 g/dL (12.0-18.0); BG VENT MODE VENT - AC
[2021-04-08] MEDS ORDERED: PROPOFOL 10MG/ML 100ML 100 ML IV PRN ×2 (12:30)
[2021-04-09] VITALS (90 sets, daily range): BP systolic 88–166; BP diastolic 53–106
[2021-04-09] MEDS: IPRATROPIUM/ALBUTEROL 0.5-3(2.5)MG/3ML NEB HHN SCH ×5 (03:12→20:28)
[2021-04-09 05:42] LABS: HEMATOCRIT. 33.2 % (42.0-52.0); HEMOGLOBIN. 11.1 g/dL (14.0-18.0); RED CELL DISTRIBUTION WIDTH 13.8 % (11.6-14.6)
[2021-04-09 05:51] LABS: CHLORIDE 103 mEq/L (98-107)
[2021-04-09] MEDS: FENTANYL CITRATE 2,500 MCG in SODIUM CHLORIDE 0.9% 200 ML IV PRN ×2 (05:57→21:09)
[2021-04-09 07:54] LABS: PLATELET ESTIMATE NORMAL
[2021-04-09 07:55] LABS: MEAN PLATELET VOLUME 9.5 fl (7.4-10.4); PLATELET 135 x1000/uL (130-400)
[2021-04-09] MEDS: DEXAMETHASONE 10 MG/ML VIAL IV SCH (09:35)
[2021-04-09] MEDS: PANTOPRAZOLE SODIUM 40 MG/VIAL IV SCH (09:35)
[2021-04-09] MEDS: AMLODIPINE 10MG TABLET PO SCH (09:36)
[2021-04-09] MEDS: ENOXAPARIN 40MG/0.4ML SYR SUBCUT SCH (09:36)
[2021-04-09 09:38] LABS: BG BASE EXCESS 7.1 mmol/L (-2.0-2.0); BG CARBOXYHEMOGLOBIN 0.2 % (0.5-1.5); BG FRACTION INSPIRED OXYGEN 100; BG HCO3 ACT 32.8 mmol/L (22.0-26.0); BG METHEMOGLOBIN 0.3 % (0.0-1.5); BG OXYHEMOGLOBIN 93.5 % (94.0-97.0); BG PCO2 51.6 mmHg (35.0-45.0); BG PH 7.421 (7.350-7.450); BG PO2 67.6 mmHg (75.0-100.0); BG SAMPLE SITE LEFT RADIAL; BG TOTAL HEMOGLOBIN 12.3 g/dL (12.0-18.0); BG VENT MODE VENT - AC
[2021-04-09] MEDS: PROPOFOL 10MG/ML 100ML 100 ML IV PRN ×2 (11:17→21:11)
[2021-04-09] MEDS: SODIUM CHLORIDE 0.9% 1,000 ML IV SCH (11:17)
[2021-04-09] MEDS: CEFEPIME 2,000 MG in DEXT 5% WATER 100 ML IV SCH ×2 (15:15→21:09)
[2021-04-10] VITALS (149 sets, daily range): BP systolic 72–214; BP diastolic 15–122
[2021-04-10] MEDS: IPRATROPIUM/ALBUTEROL 0.5-3(2.5)MG/3ML NEB HHN SCH (00:16)
[2021-04-10] MEDS: SODIUM CHLORIDE 0.9% 1,000 ML IV SCH ×2 (01:15→14:49)
[2021-04-10 06:02] LABS: HEMOGLOBIN. 11.8 g/dL (14.0-18.0); MEAN CORPUSCULAR VOLUME 82.4 fL (80.0-94.0); MEAN PLATELET VOLUME 9.4 fl (7.4-10.4); PLATELET 139 x1000/uL (130-400); RED BLOOD CELL COUNT 4.37 mill/uL (4.7-6.1); RED CELL DISTRIBUTION WIDTH 13.7 % (11.6-14.6)
[2021-04-10 06:15] LABS: CHLORIDE 100 mEq/L (98-107)
[2021-04-10] MEDS: CEFEPIME 2,000 MG in DEXT 5% WATER 100 ML IV SCH ×3 (06:38→21:30)
[2021-04-10] MEDS: CLONIDINE 0.1MG TABLET PO PRN (07:43)
[2021-04-10] MEDS ORDERED: HYDRALAZINE 20MG/ML VIAL IV SCH (08:15)
[2021-04-10 09:30] LABS: BG BASE EXCESS 6.7 mmol/L (-2.0-2.0); BG CARBOXYHEMOGLOBIN 0.5 % (0.5-1.5); BG DEOXYHEMOGLOBIN 12.8 % (0.0-5.0); BG HCO3 ACT 30.5 mmol/L (22.0-26.0); BG METHEMOGLOBIN 0.3 % (0.0-1.5); BG OXYGEN SATURATION 87.1 % (92.0-98.5); BG OXYHEMOGLOBIN 86.4 % (94.0-97.0); BG PCO2 40.7 mmHg (35.0-45.0); BG PH 7.493 (7.350-7.450); BG SAMPLE SITE RIGHT RADIAL; BG TOTAL HEMOGLOBIN 13.3 g/dL (12.0-18.0); BG VENT MODE VENT - AC
[2021-04-10] MEDS: PANTOPRAZOLE SODIUM 40 MG/VIAL IV SCH (10:33)
[2021-04-10] MEDS: DEXAMETHASONE 10 MG/ML VIAL IV SCH (10:33)
[2021-04-10] MEDS: AMLODIPINE 10MG TABLET PO SCH (10:33)
[2021-04-10] MEDS: ENOXAPARIN 40MG/0.4ML SYR SUBCUT SCH (10:33)
[2021-04-10] MEDS: FENTANYL CITRATE 2,500 MCG in SODIUM CHLORIDE 0.9% 200 ML IV PRN ×2 (10:54→19:20)
[2021-04-10 11:48] LABS: PLATELET ESTIMATE NORMAL
[2021-04-10] MEDS: PROPOFOL 10MG/ML 100ML 100 ML IV PRN ×2 (14:29→19:19)
[2021-04-10] MEDS ORDERED: VANCOMYCIN 1500MG in DEXTROSE 5% WATER 250ML IV NR (18:00)
[2021-04-10 18:48] LABS: BG BASE EXCESS 1.4 mmol/L (-2.0-2.0); BG CARBOXYHEMOGLOBIN 0.3 % (0.5-1.5); BG DEOXYHEMOGLOBIN 25.5 % (0.0-5.0); BG FRACTION INSPIRED OXYGEN 100; BG HCO3 ACT 28.4 mmol/L (22.0-26.0); BG METHEMOGLOBIN 0.3 % (0.0-1.5); BG OXYGEN SATURATION 74.3 % (92.0-98.5); BG OXYHEMOGLOBIN 73.9 % (94.0-97.0); BG PCO2 55.2 mmHg (35.0-45.0); BG PH 7.329 (7.350-7.450); BG PO2 44.9 mmHg (75.0-100.0); BG TOTAL HEMOGLOBIN 13.1 g/dL (12.0-18.0); BG VENT MODE VENT - AC
[2021-04-10 22:32] LABS: BG BASE EXCESS -8.7 mmol/L (-2.0-2.0); BG CARBOXYHEMOGLOBIN 0.3 % (0.5-1.5); BG DEOXYHEMOGLOBIN 48.4 % (0.0-5.0); BG FRACTION INSPIRED OXYGEN 100; BG HCO3 ACT 16.9 mmol/L (22.0-26.0); BG METHEMOGLOBIN 0.6 % (0.0-1.5); BG OXYGEN SATURATION 51.2 % (92.0-98.5); BG OXYHEMOGLOBIN 50.7 % (94.0-97.0); BG PCO2 34.9 mmHg (35.0-45.0); BG PH 7.302 (7.350-7.450); BG PO2 31.4 mmHg (75.0-100.0); BG SAMPLE SITE LEFT BRACHIAL; BG TOTAL HEMOGLOBIN 8.1 g/dL (12.0-18.0); BG VENT MODE AC
[2021-04-11] VITALS (105 sets, daily range): BP systolic 85–168; BP diastolic 33–118
[2021-04-11] MEDS: IPRATROPIUM/ALBUTEROL 0.5-3(2.5)MG/3ML NEB HHN SCH ×4 (00:39→20:04)
[2021-04-11] MEDS: SODIUM CHLORIDE 0.9% 1,000 ML IV SCH ×2 (03:55→17:50)
[2021-04-11 05:20] LABS: CHLORIDE 99 mEq/L (98-107)
[2021-04-11 05:27] LABS: HEMATOCRIT. 37.4 % (42.0-52.0); HEMOGLOBIN. 12.2 g/dL (14.0-18.0); MEAN CORPUSCULAR HEMOGLOBIN 26.8 pg (28.0-32.0); MEAN CORPUSCULAR VOLUME 82.1 fL (80.0-94.0); MEAN PLATELET VOLUME 8.6 fl (7.4-10.4); PLATELET 103 x1000/uL (130-400); RED BLOOD CELL COUNT 4.55 mill/uL (4.7-6.1); RED CELL DISTRIBUTION WIDTH 13.9 % (11.6-14.6)
[2021-04-11] MEDS: CEFEPIME 2,000 MG in DEXT 5% WATER 100 ML IV SCH ×2 (05:43→14:34)
[2021-04-11] MEDS ORDERED: VANCOMYCIN 1 G PREMIX 200 ML IV SCH (06:00)
[2021-04-11 08:14] LABS: BG BASE EXCESS 1.6 mmol/L (-2.0-2.0); BG CARBOXYHEMOGLOBIN 0.2 % (0.5-1.5); BG DEOXYHEMOGLOBIN 35.9 % (0.0-5.0); BG HCO3 ACT 28.2 mmol/L (22.0-26.0); BG METHEMOGLOBIN 0.4 % (0.0-1.5); BG OXYGEN SATURATION 63.9 % (92.0-98.5); BG OXYHEMOGLOBIN 63.5 % (94.0-97.0); BG PCO2 52.9 mmHg (35.0-45.0); BG PH 7.345 (7.350-7.450); BG PO2 35.4 mmHg (75.0-100.0); BG SAMPLE SITE RIGHT RADIAL; BG TOTAL HEMOGLOBIN 13.6 g/dL (12.0-18.0); BG VENT MODE VENT - AC
[2021-04-11] MEDS: ENOXAPARIN 40MG/0.4ML SYR SUBCUT SCH (09:00)
[2021-04-11] MEDS: AMLODIPINE 10MG TABLET PO SCH (09:11)
[2021-04-11] MEDS: PANTOPRAZOLE SODIUM 40 MG/VIAL IV SCH (09:11)
[2021-04-11] MEDS: DEXAMETHASONE 10 MG/ML VIAL IV SCH (09:11)
[2021-04-11] MEDS: FENTANYL CITRATE 2,500 MCG in SODIUM CHLORIDE 0.9% 200 ML IV PRN ×2 (09:12→20:48)
[2021-04-11] MEDS: PROPOFOL 10MG/ML 100ML 100 ML IV PRN ×2 (09:14→17:58)
[2021-04-11] MEDS: PHENYLEPHRINE 100 MG in DEXT 5% WATER 240 ML IV PRN ×2 (10:02→23:49)
[2021-04-11 11:05] LABS: PLATELET ESTIMATE DECREASED
[2021-04-11 13:02] LABS: BG BASE EXCESS -0.7 mmol/L (-2.0-2.0); BG FRACTION INSPIRED OXYGEN 100; BG HCO3 ACT 27.4 mmol/L (22.0-26.0); BG PCO2 59.5 mmHg (35.0-45.0); BG PH 7.281 (7.350-7.450); BG PO2 38.8 mmHg (75.0-100.0); BG SAMPLE SITE LEFT RADIAL; BG TOTAL RESPIRATORY RATE 30 b/min; BG VENT MODE VENT - AC
[2021-04-11] MEDS: CEFAZOLIN 2,000 MG in DEXT 5% WATER 100 ML IV SCH (17:54)
[2021-04-12] VITALS (75 sets, daily range): BP systolic 39–169; BP diastolic 13–89
[2021-04-12] MEDS: CEFAZOLIN 2,000 MG in DEXT 5% WATER 100 ML IV SCH ×2 (01:09→09:59)
[2021-04-12] MEDS: IPRATROPIUM/ALBUTEROL 0.5-3(2.5)MG/3ML NEB HHN SCH ×3 (01:40→12:08)
[2021-04-12 05:26] LABS: HEMATOCRIT. 37.1 % (42.0-52.0); HEMOGLOBIN. 11.8 g/dL (14.0-18.0); MEAN CORPUSCULAR HEMOGLOBIN 26.6 pg (28.0-32.0); MEAN CORPUSCULAR VOLUME 83.6 fL (80.0-94.0); PLATELET 73 x1000/uL (130-400); RED BLOOD CELL COUNT 4.43 mill/uL (4.7-6.1); RED CELL DISTRIBUTION WIDTH 14.6 % (11.6-14.6)
[2021-04-12] MEDS: SODIUM CHLORIDE 0.9% 1,000 ML IV SCH (05:39)
[2021-04-12] MEDS: FENTANYL CITRATE 2,500 MCG in SODIUM CHLORIDE 0.9% 200 ML IV PRN (06:48)
[2021-04-12 08:06] LABS: PLATELET ESTIMATE DECREASED
[2021-04-12] MEDS: PHENYLEPHRINE 100 MG in DEXT 5% WATER 240 ML IV PRN (08:42)
[2021-04-12] MEDS: DEXAMETHASONE 10 MG/ML VIAL IV SCH (08:47)
[2021-04-12] MEDS: AMLODIPINE 10MG TABLET PO SCH (08:47)
[2021-04-12] MEDS: PANTOPRAZOLE SODIUM 40 MG/VIAL IV SCH (08:47)
[2021-04-12] MEDS: PROPOFOL 10MG/ML 100ML 100 ML IV PRN ×2 (08:49→13:14)
[2021-04-12] MEDS: ENOXAPARIN 40MG/0.4ML SYR SUBCUT SCH (09:00)
[2021-04-12 09:24] LABS: BG BASE EXCESS -7.6 mmol/L (-2.0-2.0); BG CARBOXYHEMOGLOBIN 0.5 % (0.5-1.5); BG DEOXYHEMOGLOBIN 49.6 % (0.0-5.0); BG FRACTION INSPIRED OXYGEN 100; BG HCO3 ACT 21.6 mmol/L (22.0-26.0); BG METHEMOGLOBIN 0.3 % (0.0-1.5); BG OXYHEMOGLOBIN 49.6 % (94.0-97.0); BG PCO2 60.8 mmHg (35.0-45.0); BG PH 7.168 (7.350-7.450); BG PO2 31.7 mmHg (75.0-100.0); BG SAMPLE SITE RIGHT BRACHIAL; BG TOTAL HEMOGLOBIN 12.9 g/dL (12.0-18.0); BG VENT MODE VENT - PRVC
[2021-04-12] MEDS ORDERED: VASOPRESSIN 20 UNIT in SODIUM CHLORIDE 0.9% 99 ML IV PRN (09:30)
[2021-04-12 12:08] LABS: BG BASE EXCESS -13.5 mmol/L (-2.0-2.0); BG CARBOXYHEMOGLOBIN 0.2 % (0.5-1.5); BG DEOXYHEMOGLOBIN 33.8 % (0.0-5.0); BG FRACTION INSPIRED OXYGEN 100; BG HCO3 ACT 15.5 mmol/L (22.0-26.0); BG METHEMOGLOBIN 0.1 % (0.0-1.5); BG OXYHEMOGLOBIN 65.9 % (94.0-97.0); BG PCO2 47.8 mmHg (35.0-45.0); BG PO2 42.9 mmHg (75.0-100.0); BG SAMPLE SITE RIGHT RADIAL; BG TOTAL HEMOGLOBIN 11.4 g/dL (12.0-18.0); BG VENT MODE VENT - PRVC
[2021-04-12] MEDS ORDERED: SODIUM BICARBONATE 8.4% 1 MEQ/ML 50ML SYR IV NR (12:15)
[2021-04-12] MEDS ORDERED: SODIUM BICARBONATE 8.4% 1 MEQ/ML 50ML SYR IV ONE (14:21)
[2021-04-12] MEDS ORDERED: CALCIUM CHLORIDE 1GM/10ML SYR IV ONE (14:21)
[2021-04-12] MEDS ORDERED: EPINEPHRINE 0.1MG/ML (1:10,000) 10ML SYR ONE (14:21)
[2021-04-12] MEDS ORDERED: MAGNESIUM SULFATE 4G IN WATER 100ML PREMIX IV ONE (14:21)
[2021-04-12] MEDS ORDERED: SODIUM BICARBONATE 150 MEQ in DEXTROSE 5% WATER 1,000 ML IV SCH (14:30)
[2021-04-12] MEDS ORDERED: SODIUM POLYSTYRENE SULFONATE 15 G/60 ML BOT PO NR (14:30)
[2021-04-12] MEDS ORDERED: VANCOMYCIN 750 MG PREMIX 150 ML IV NR (22:00)
== END 2021-04-12 17:14 | DRG 870 ==
LOC: ER 22:26 → 7WST 03-24 02:44 → EDBEDREQ 03-24 02:54 → EDBEDREQSVC 03-24 02:54 → EDBEDREQTM 03-24 02:54 → ENRESERV 03-24 04:45 → ER 03-24 05:55 → 5EST 04-04 16:13 → MICUNO 04-05 19:00
PROVIDERS: ADMIT Internal Medicine; ATTEND Internal Medicine
PROC: 5A1955Z Respiratory Ventilation, Greater than 96 Consecutive Hours (ICD-10-PCS; principal; 2021-04-04)
PROC: 0BH17EZ Insertion of Endotracheal Airway into Trachea, Via Natural or Artificial Opening (ICD-10-PCS; 2021-04-04)
PROC: 5A0935A Assistance with Respiratory Ventilation, Less than 24 Consecutive Hours, High Flow/Velocity Cannula (ICD-10-PCS; 2021-04-04)
PROC: 5A12012 Performance of Cardiac Output, Single, Manual (ICD-10-PCS; 2021-04-12)
PROC: 5A2204Z Restoration of Cardiac Rhythm, Single (ICD-10-PCS; 2021-04-12)
PROC: 02HV33Z Insertion of Infusion Device into Superior Vena Cava, Percutaneous Approach (ICD-10-PCS; 2021-04-12)
PROC: B548ZZA Ultrasonography of Superior Vena Cava, Guidance (ICD-10-PCS; 2021-04-12)
DX: A41.89 Other specified sepsis (principal); U07.1 COVID-19; J12.82 Pneumonia due to coronavirus disease 2019; R65.21 Severe sepsis with septic shock; J80 Acute respiratory distress syndrome; J15.211 Pneumonia due to Methicillin susceptible Staphylococcus aureus; N17.9 Acute kidney failure, unspecified; R74.01 Elevation of levels of liver transaminase levels; I10 Essential (primary) hypertension; J45.909 Unspecified asthma, uncomplicated; Z78.1 Physical restraint status; I69.320 Aphasia following cerebral infarction; Z79.82 Long term (current) use of aspirin
CPT/HCPCS: 31500; 36415; 36600; 71045; 76937; 80048; 80053; 80061; 80202; 80320; 82270; 82375; 82550; 82728; 82805; 82962; 83605; 83615; 83880; 84145; 84443; 84478; 84484; 85025; 85384; 86140; 86141; 87070; 87077; 87186; 87426; 93005; 93970; 94002; 94003; 94640; 99291; A6261; C1725; C1893; C9113; J0330; J0360; J0456; J0690; J0692; J0696; J1100; J1200; J1650; J2370; J2405; J2704; J3010; J3370; J3475; J3490; J7030; J7040; J7050; J7060; J7070; U0003; U0005; A4315; G0480